=== PATIENT | female | born 1950 | race Caucasian/White ===

== ENCOUNTER 2023-11-07 10:47 | Emergency (ER) | payer OTHER, MEDICARE, SELFPAY ==
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
[2023-11-07 10:52] VITALS: BP 165/65; PULSE 64; RESP 16; TEMP 36.1; O2SAT 99
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
[2023-11-07 12:40] VITALS: BP 160/70; PULSE 80; RESP 16; TEMP 36.4; O2SAT 97
== END 2023-11-07 12:43 | disposition home or self-care (01) ==
PROVIDERS: Emergency Provider Emergency Medicine
DX: M54.41 Lumbago with sciatica, right side (principal); V43.52XA Car driver injured in collision with other type car in traffic accident, initial encounter
CPT/HCPCS: 72100; 73502; 99284

== ENCOUNTER 2024-05-17 08:37 | Outpatient (CLI) | payer MEDICARE, SELFPAY ==
--- NOTE | ~2024-05-17 | MR_ITS ---
EXAMINATION: MR thoracic spine wo con DATE: 05/17/2024 09:43 INDICATION: Postlaminectomy syndrome. TECHNIQUE: Magnetic resonance imaging (MRI) of the thoracic spine was performed without intravenous c ontrast. COMPARISON: None FINDINGS: There is a large sliding hiatal hernia. There is kyphosis of thoracic spine. There is 13 de grees levoscoliosis of thoracolumbar spine. There is mild chronic anterior wedging of T5, T6, T7, T11 , and T12 vertebral bodies. There is moderately decreased disc height from T4-T5 through T6-T7. There is mildly decreased disc height at a few levels. There is multilevel severe facet joint osteoarthrit is. There is mild neural foraminal stenosis at multiple other levels on either side. At T11-T12, the disc is mildly bulging with mild central canal stenosis. At T12-L1, the disc is bulging with mild marcus tral canal stenosis. The spinal cord signal intensity is normal. At T4, there is anterior displacemen t and deformity of the spinal cord. IMPRESSION: 1. 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 2. Mild thoracic spondylosis. 3. Thoracic kyphosis. Thoracolumbar levoscoliosis. 4. Large sliding hiatal hernia. Reviewed, dictated and finalized at location A. OSOPHY PROFESSOR IMPRESSION: 1. 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 2. Mild thoracic spondylosis. 3. Thoracic kyphosis. Thoracolumbar levoscoliosis. 4. Large sliding hiatal hernia.
--- NOTE | ~2024-05-17 | MR_ITS ---
EXAMINATION: MR lumbar spine wo con DATE: 05/17/2024 09:43 INDICATION: Postlaminectomy syndrome. TECHNIQUE: Magnetic resonance imaging (MRI) of the lumbar spine was performed without intravenous con trast. COMPARISON: Lumbar spine radiographs 11/07/2023 FINDINGS: There is 19 degrees dextroscoliosis of thoracolumbar spine. There is 3 mm retrolisthesis of T12 on L1, L1 on L2, and L2 on L3, 3 mm anterolisthesis of L4 on L5, and 5 mm anterolisthesis of L5 on S1. There is mild chronic anterior wedging of T11 vertebral body. There are changes of posterior f usion procedure from L4 to S1 with pedicle screws. There is mildly decreased disc height at T12-L1, s everely decreased disc height at L1-L2 and L2-L3, and mildly decreased disc height at L4-L5 and L5-S1 . The distal spinal cord signal intensity is normal. The conus medullaris is at T12-L1. At L5, there is fluid in the postlaminectomy space measuring 3.8 x 1.4 x 4.2 cm, likely a seroma. The following di sc levels are specifically discussed: L1-L2: The disc is bulging with superimposed central extrusion. There is severe bilateral facet joint osteoarthritis. There is mild bilateral neural foraminal stenosis. There is mild central canal steno sis. L2-L3: The disc is bulging and has an annular fissure. There is severe bilateral facet joint osteoart hritis. There is moderate right and mild left neural foraminal stenosis. There is mild central canal stenosis. L3-L4: The disc is bulging and has an annular fissure. There is severe bilateral facet joint osteoart hritis. There is mild bilateral neural foraminal stenosis. There is mild central canal stenosis with posterior decompression. L4-L5: The disc does not extend beyond the endplate margin. There is mild bilateral facet joint hyper trophy. There is no neural foraminal stenosis. There is no central canal stenosis. There is posterior decompression. L5-S1: The disc is bulging and has an annular fissure. There is mild bilateral facet joint hypertroph y. There is mild bilateral neural foraminal stenosis. There is mild central canal stenosis with poste rior decompression. IMPRESSION: 1. Severe lumbar spondylosis. 2. Lumbar dextroscoliosis. 3. Posterior fusion procedure from L4 to S1. Reviewed, dictated and finalized at location A. 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
== END 2024-05-17 08:38 | disposition home or self-care (01) ==
DX: M96.1 Postlaminectomy syndrome, not elsewhere classified (principal); M43.8X4 Other specified deforming dorsopathies, thoracic region; M47.894 Other spondylosis, thoracic region; M41.85 Other forms of scoliosis, thoracolumbar region; K44.9 Diaphragmatic hernia without obstruction or gangrene
CPT/HCPCS: 72146; 72148